=== PATIENT | male | born 1995 | race Caucasian/White ===

== ENCOUNTER 2022-03-25 19:06 | Emergency (ER) | payer MEDICAID ==
[2022-03-25] MEDS ORDERED: Lidocaine 1% 5 ML VIAL INJECT ONE (19:31)
[2022-03-25] MEDS ORDERED: Bacitracin Oint 1 GM U/D Packet TOP ONE (19:32)
[2022-03-25] MEDS ORDERED: Diphtheria,Pertussis(Acell),Tetanus Vaccine 0.5 ML Syringe IM ONE (19:47)
== END 2022-03-25 20:49 | disposition home or self-care (01) ==
LOC: JP.ED 19:06
DX: S61.011A Laceration without foreign body of right thumb without damage to nail, initial encounter (principal); Z23 Encounter for immunization; Z91.018 Allergy to other foods; W31.2XXA Contact with powered woodworking and forming machines, initial encounter
CPT/HCPCS: 12001; 90471; 90715; 99281; 99283-25